=== PATIENT | female | born 1960 | race Caucasian/White ===

== ENCOUNTER → 2016-10-01 | Outpatient (CLI) | payer MEDICARE, MEDICAID ==
[~2016-10-01] MED LIST: ADVAIR DIS1 PUFF/DO1 IH; AUGMENTIN 250250 MG PO; DELTASONE DPS20 MG PO; EXCEDRIN DPS1 TAB PO; FLEXERIL-DPS10 MG PO; INCRUSE ELLI62.5 MCG IH; LOPRESSOR DPS50 MG PO; MONTELUKAST SOD10 MG PO; PROAIR RESPICL90 MCG IH; TYLENOL DPS325 MG PO; VITAMIN D50000 UNIT PO; XARELTO15 MG PO; ZOFRAN4 MG PO
== END | disposition home or self-care (01) ==
LOC: RESC 09-21 11:00
DX: J44.9 Chronic obstructive pulmonary disease, unspecified (principal); R94.2 Abnormal results of pulmonary function studies